=== PATIENT | male | born 2000 | race Caucasian/White ===

== ENCOUNTER 2023-02-14 12:22 | Emergency (ER) | payer OTHER, SELFPAY ==
--- NOTE | 2023-02-14 12:32 | PC.NURSE ---
1231- This RN was not seen nor assessed by this RN. Pt informed registration he was leaving d/t being at the wrong facility. Received phone call from employer stating he needed to have drug test and other things performed we do not offer and told him he was at the wrong place.
== END 2023-02-14 12:32 | disposition left against medical advice (07) ==
DX: Z53.21 Procedure and treatment not carried out due to patient leaving prior to being seen by health care provider (principal)
CPT/HCPCS: 99199